=== PATIENT | male | born 1990 | race Caucasian/White ===

== ENCOUNTER 2019-03-27 18:06 | Emergency (ER) | payer OTHER ==
[~2019-03-27] VITALS: Ht 185.4 cm; Wt 133.8 kg
[2019-03-27 18:39] VITALS: BP 130/92; Ht 185.4 cm; Wt 133.8 kg
== END 2019-03-27 19:38 | disposition home or self-care (01) ==
LOC: ED 18:06
DX: S33.5XXA Sprain of ligaments of lumbar spine, initial encounter (principal); X50.0XXA Overexertion from strenuous movement or load, initial encounter; Y93.89 Activity, other specified; Y92.89 Other specified places as the place of occurrence of the external cause; Y99.8 Other external cause status
CPT/HCPCS: J1885